=== PATIENT | male | born 1985 | race Caucasian/White ===

== ENCOUNTER 2019-10-15 16:17 | Emergency (ER) | payer BC ==
[2019-10-15 18:17] LABS: Influenza A Molecular Negative (Negative); Influenza B Molecular Negative (Negative)
--- NOTE | 2019-10-15 18:39 | UC ---
Respiratory Complaint HPI - HPI Summary HPI Summary: 34-year-old male comes in with a chief complaint of shortness of breath that started this morning. Patient travels back from [place] on October 08, 2019. Has no calf pain no history of deep venous thromboses or pulmonary emboli. Also has had some runny nose. Has felt some fluttering in his right lower chest. Patient reports he's had similar episodes of shortness of breath. No complaint of any fevers chills or body aches. No known exposure to covid 19. - History of Current Complaint Chief Complaint: UCRespiratory Stated Complaint: COUGH, SOB Time Seen by Provider: 10/15/19 17:36 Pain Intensity: 0 - Allergies/Home Medications Allergies/Adverse Reactions: Allergies Allergy/AdvReac Type Severity Reaction Status Date / Time No Known Allergies Allergy Verified 10/15/19 17:28 Home Medications: Home Medications Albuterol HFA INHALER* [Ventolin HFA Inhaler*] 2 puff INH Q4H PRN #1 mdi [Rx] PMH/Surg Hx/FS Hx/Imm Hx Previously Healthy: Yes - Surgical History Surgical History: None - Family History Known Family History: Positive: Non-Contributory - Social History Alcohol Use: None Substance Use Type: None Smoking Status (MU): Never Smoked Tobacco Review of Systems All Other Systems Reviewed And Are Negative: Yes Constitutional: Positive: Other - see hpi Skin: Positive: Negative Eyes: Positive: Negative ENT: Positive: Nasal Discharge Respiratory: Positive: Shortness Of Breath, Other - see hpi Cardiovascular: Positive: Other - see hpi Motor: Positive: Negative Neurovascular: Positive: Negative Musculoskeletal: Positive: Negative Neurological/Mental Status: Positive: Negative Psychological: Positive: Anxious Is Patient Immunocompromised?: No Physical Exam - Summary Physical Exam Summary: To decrease risk of transmission of covert 19 physical examination was undertaken by telemedicine which does limit the physical examination. Triage Information Reviewed: Yes Appearance: Well-Appearing, No Pain Distress, Well-Nourished Vital Signs: Initial Vital Signs Temp 0 F 10/15/19 17:21 Pulse 0 10/15/19 17:21 Resp 0 10/15/19 17:21 BP 0/0 10/15/19 17:21 Pulse Ox 0 10/15/19 17:21 Vital Signs Reviewed: Yes Eye Exam: Normal Eyes: Positive: Conjunctiva Clear Neck: Positive: Supple Musculoskeletal: Positive: Strength Intact, ROM Intact Neurological: Positive: Alert, Muscle Tone Normal Psychological: Positive: Age Appropriate Behavior Respiratory Course/Dx - Course Course Of Treatment: Strep and for negative. Discussed the chest x-ray with the patient I do not see any acute disease process radiologist reading is pending. Did prescribe albuterol be used if helpful. Patient denies any calf pain or history of pulmonary embolus or DVT and his shortness of breath is intermittent and vital signs normal making pulmonary embolism unlikely. Patient was tested for Covid 19 he will follow-up with [facility]. If he gets worse is to go the emergency department. - Differential Dx/Diagnosis Provider Diagnosis: Shortness of breath Discharge ED - Sign-Out/Discharge Documenting (check all that apply): Patient Departure All imaging exams completed and their final reports reviewed: No - Discharge Plan Condition: Stable Disposition: HOME Prescriptions: Albuterol HFA INHALER* [Ventolin HFA Inhaler*] 2 puff INH Q4H PRN #1 mdi PRN Reason: Shortness Of Breath Patient Education Materials: Shortness of Breath (ED) Forms: COVID-19 Tested & Isolation Referrals: [facility]FERR[facility] [Outside] Additional Instructions: PLACE YOURSELF IN HOME ISOLATION. THE [facility] WILL CONTACT YOU. CONTACT THEM TOMORROW IF YOU HAVE NOT HEARD FROM THEM. FOLLOW UP WITH YOUR DOCTOR IF NOT COMPLETELY IMPROVED. GO TO THE EMERGENCY DEPARTMENT IF NOT IMPROVED OR WORSE OR ANY QUESTIONS OR CONCERNS. - Billing Disposition and Condition Condition: STABLE Disposition: Home
[2019-10-15 18:46] VITALS: BP 163/94
--- NOTE | 2019-10-16 10:22 | UC ---
- Progress Note Progress Note: Final x ray reading: Wet read correct. Tom Sanon MD Course/Dx - Diagnoses Provider Diagnoses: Shortness of breath Discharge ED - Sign-Out/Discharge Documenting (check all that apply): Post-Discharge Follow Up All imaging exams completed and their final reports reviewed: Yes - Discharge Plan Condition: Stable Disposition: HOME Prescriptions: Albuterol HFA INHALER* [Ventolin HFA Inhaler*] 2 puff INH Q4H PRN #1 mdi PRN Reason: Shortness Of Breath Patient Education Materials: Shortness of Breath (ED) Forms: COVID-19 Tested & Isolation Referrals: [facility] [place] [facility]FERR[facility] [Outside] Additional Instructions: PLACE YOURSELF IN HOME ISOLATION. [facility]. CONTACT THEM TOMORROW IF YOU HAVE NOT HEARD FROM THEM. FOLLOW UP WITH YOUR DOCTOR IF NOT COMPLETELY IMPROVED. GO TO THE EMERGENCY DEPARTMENT IF NOT IMPROVED OR WORSE OR ANY QUESTIONS OR CONCERNS. - Billing Disposition and Condition Condition: STABLE Disposition: Home
== END 2019-10-15 19:11 | disposition home or self-care (01) ==
LOC: UCEAST 16:17
DX: R06.02 Shortness of breath (principal); Z20.828 Contact with and (suspected) exposure to other viral communicable diseases
CPT/HCPCS: 71046; 87651; 99203; G0463; Q3014; U0002